=== PATIENT | male | born 1960 | race Caucasian/White ===

== ENCOUNTER → 2017-01-01 | Outpatient (CLI) | payer BC ==
[~2017-01-01] MED LIST: ASPIR-LOW81 MG PO; ATORVASTATIN CA80 MG PO; BRILINTA90 MG PO; LISINOPRIL10 MG PO; LITE COAT ASPI325 M1 PO; METOPROLOL TART50 MG PO; NITROSTAT0.4 MG SL
== END | disposition home or self-care (01) ==
LOC: NUC 09:55
DX: I25.5 Ischemic cardiomyopathy (principal)
CPT/HCPCS: 78472; A9512; A9560

== ENCOUNTER 2017-04-30 05:19 | Inpatient (IN) | payer BC ==
[~2017-04-30] VITALS: Ht 182.9 cm; Wt 101.3 kg
[2017-04-30 05:50] LABS: HEMATOCRIT 41.9 % (38.0-50.0); MCH 31.7 PG (29.0-34.0); MCHC 32.9 G/DL (30.0-36.0); MCV 96.1 FL (86-99); MEAN PLAT.VOLUME 10.9 uM^3 (9.0-12.4); PLATELET COUNT 207 K/uL (156-360); RBC DIS.WIDTH-CV 12.5 % (11.8-14.6); RBC DIS.WIDTH-SD 44.5 % (39-53); RED BLOOD COUNT 4.36 M/uL (4.00-5.50); WHITE BLOOD COUNT 17.5 K/uL (4.1-10.2)
[2017-04-30 06:01] LABS: INTER. NORMALIZED RATIO 1.7; PROTHROMBIN TIME 17.5 (9.2-11.2); PTT 26.5 (25-32)
[2017-04-30 06:03] LABS: CHLORIDE 102 mEq/L (99-109); SODIUM 135 mEq/L (136-147)
[2017-04-30 06:05] LABS: GLUCOSE 241 mg/dL (70-99)
[2017-04-30 06:06] LABS: ANION GAP 10 MEQ/L (2-14)
[2017-04-30 06:09] LABS: GFR ESTIMATE (CALCULATED) > 59 mL/min/; UREA NITROGEN (BUN) 21 mg/dL (9-23)
[2017-04-30] MEDS ORDERED: VALSARTAN160 MG PO (06:12)
[2017-04-30] MEDS ORDERED: PLAVIX75 MG PO (06:12)
[2017-04-30 06:13] LABS: TROP-I INTERPRETATION NEGATIVE; TROPONIN-I < 0.01 ng/mL (0.0-0.30)
[2017-04-30] MEDS ORDERED: METOPROLOL TART50 MG PO (10:23)
[2017-04-30 10:43] LABS: ERTH.SED.RATE 23 MM/HR (0-20)
[2017-04-30 11:32] VITALS: BP 102/75
== END 2017-04-30 12:00 | disposition designated cancer center or children's hospital, planned readmission (85) | DRG 280 ==
LOC: EME → EDBD 05:19 → EME 05:19 → EDOF 08:13
PROVIDERS: Emergency Medicine
DX: I31.3 Pericardial effusion (noninflammatory) (principal); J18.9 Pneumonia, unspecified organism; I31.4 Cardiac tamponade; I21.09 ST elevation (STEMI) myocardial infarction involving other coronary artery of anterior wall; I50.9 Heart failure, unspecified; J90 Pleural effusion, not elsewhere classified; I07.1 Rheumatic tricuspid insufficiency; I25.10 Atherosclerotic heart disease of native coronary artery without angina pectoris; R73.01 Impaired fasting glucose; R73.03 Prediabetes; J98.11 Atelectasis; I11.0 Hypertensive heart disease with heart failure; I25.5 Ischemic cardiomyopathy; E78.5 Hyperlipidemia, unspecified; Z95.5 Presence of coronary angioplasty implant and graft; I25.2 Old myocardial infarction; Z95.810 Presence of automatic (implantable) cardiac defibrillator
CPT/HCPCS: 71010; 71275; 80047; 80048; 83605; 83615 91; 83880; 83986 90; 84157; 84484; 85027; 85610; 85651; 85730; 86140; 87040; 87070; 87205; 87449; 93005; 93306; 94640; 99281; 99285; J1815; J2270; J2405; J2543; J2765; J3370; J7040